=== PATIENT | female | born 1985 | race Native Hawaiian/Other Pacific Islander ===

== ENCOUNTER 2016-09-12 23:41 | Emergency (ER) | payer OTHER ==
[2016-09-12 23:50] VITALS: RESP 16; O2SAT 99
[2016-09-13] MEDS ORDERED: Sodium Chloride 0.9% 1,000 ML IV ONE (01:12)
[2016-09-13 01:14] LABS: BASO # 0.1 K/uL (0.0-0.2); BASO % 0.6 % (0.0-2.0); EOS # 0.1 K/uL (0.0-0.7); EOS % 0.5 % (0.0-4.0); HEMATOCRIT 38.4 % (34.0-47.0); LYMPH # 2.8 K/uL (1.0-4.3); LYMPH % 26.9 % (20.0-40.0); MEAN CORPUSCULAR HEMOGLOBIN 29.6 pg (27.0-31.0); MEAN CORPUSCULAR HGB CONC 33.6 g/dL (33.0-37.0); MEAN PLATELET VOLUME 8.1 fL (7.2-11.7); MONO # 0.7 K/uL (0.0-0.8); MONO % 6.6 % (0.0-10.0); RED CELL DISTRIBUTION WIDTH 12.4 % (11.5-14.5); WHITE BLOOD COUNT 10.5 K/uL (4.8-10.8)
[2016-09-13 01:37] LABS: RBC URINE 10 /hpf (0-3); URINE BACTERIA RARE (<OCC); URINE BILIRUBIN NEGATIVE (NEGATIVE); URINE BLOOD NEGATIVE (NEGATIVE); URINE COLOR Straw (YELLOW); URINE GLUCOSE (UA) NORMAL (Normal); URINE KETONE NEGATIVE (NEGATIVE); URINE LEUKOCYTE ESTERASE 3+ Leu/uL (Negative); URINE PROTEIN NEGATIVE (NEGATIVE); URINE UROBILINOGEN NORMAL mg/dL (0.2-1.0); WBC URINE 17 /hpf (0-5)
[2016-09-13 01:38] LABS: CHLORIDE 95 mmol/L (98-107)
[2016-09-13 01:39] LABS: POTASSIUM 4.2 mmol/L (3.6-5.2)
[2016-09-13 01:41] LABS: ALB/GLOB RATIO 1.2 (1.0-2.1); AST/SGOT 30 U/L (14-36); BILIRUBIN,TOTAL 0.8 mg/dL (0.2-1.3); BLOOD UREA NITROGEN 8 mg/dL (7-17); CARBON DIOXIDE 22 mmol/L (22-30); GFR AFRICAN-AMERICAN > 60; TOTAL PROTEIN 8.5 g/dL (6.3-8.3)
[2016-09-13 01:42] LABS: ALKALINE PHOSPHATASE 59 U/L (38-126); ALT/SGPT 18 U/L (9-52); CALCIUM 8.8 mg/dl (8.6-10.4); GLUCOSE,RANDOM 88 mg/dL (65-105)
[2016-09-13 01:47] LABS: SODIUM 135 mmol/L (132-148)
--- NOTE | 2016-09-13 02:32 | C.PDOC ---
History Of Present Illness 30 year old female who presents to the ER with a complaint of intermittent light headedness and dizziness for the past 4 days that worsens with standing. Patient was diagnosed with iron deficiency last year in October; at the time she had a hemoglobin level of 8.7. Patient has been taking iron supplements intermittently; she last had her blood test done in May which showed a hemoglobin of 11, patient has results with her. Patient denies Hx of vertigo, fever, nausea, vomiting, diarrhea, chest pain, SOB, abdominal pain, dark stools , urinary symptoms, URI, or sore throat. Patient is also complaining of an atraumatic neck pain that started today and worsens with movement. Time Seen by Provider: 09/13/16 00:18 Chief Complaint (Nursing): Dizziness/Lightheaded History Per: Patient History/Exam Limitations: no limitations Onset/Duration Of Symptoms: Days Current Symptoms Are (Timing): Still Present Activity At Onset Of Symptoms: Other (Not known) Associated Symptoms Preceding Syncopal Episode: Lightheadedness Seizure Or Post-ictal Symptoms: None Possible Causative Factor(s): Other (Not known) Fall Associated With With Symptoms: No Recent travel outside of the [place]: No - Symptoms Of CVA Associated Symptoms: denies: Impaired Speech, Seizure Activity, New Vision Deficit(Left), New Vision Deficit(Right), Decreased Ability To Walk, New Confusion, Other Past Medical History Reviewed: Historical Data, Nursing Documentation, Vital Signs Vital Signs: Last Vital Signs Temp 98 F 09/13/16 04:19 Pulse 80 09/13/16 04:19 Resp 16 09/13/16 04:19 BP 120/80 09/13/16 04:19 Pulse Ox 99 09/13/16 04:19 - Medical History PMH: No Chronic Diseases Surgical History: No Surg Hx Family History: States: Unknown Family Hx - Social History Hx Alcohol Use: No Hx Substance Use: No - Immunization History Hx Tetanus Toxoid Vaccination: No Hx Influenza Vaccination: No Hx Pneumococcal Vaccination: No Review Of Systems Except As Marked, All Systems Reviewed And Found Negative. Constitutional: Negative for: Fever, Chills Cardiovascular: Positive for: Light Headedness. Negative for: Chest Pain Respiratory: Negative for: Cough, Shortness of Breath, Wheezing Gastrointestinal: Negative for: Nausea, Vomiting, Diarrhea, Melena Genitourinary: Negative for: Dysuria, Incontinence, Hematuria Musculoskeletal: Positive for: Neck Pain Neurological: Positive for: Dizziness. Negative for: Headache Physical Exam - Physical Exam Appears: Well, Non-toxic, No Acute Distress, Other (Anxious) Skin: Normal Color, Warm, Dry, No Pale, No Rash Head: Atraumatic, Normacephalic Eye(s): bilateral: Normal Inspection, PERRL, EOMI Ear(s): Bilateral: Normal Nose: Normal Oral Mucosa: Moist Throat: Normal, No Erythema, No Exudate Neck: Normal, Normal ROM, No Midline Cervical Tenderness, Paracervical Tenderness, Supple Chest: Symmetrical, No Tenderness Cardiovascular: No Murmur, Other (+tachycardic) Respiratory: Normal Breath Sounds, No Rales, No Rhonchi, No Wheezing Gastrointestinal/Abdominal: Soft, No Tenderness, No Guarding, No Rebound Back: Normal Inspection, No CVA Tenderness, No Vertebral Tenderness Extremity: Normal ROM, No Tenderness, No Swelling Pulses: Left Radial: Normal, Right Radial: Normal Neurological/Psych: Oriented x3, Normal Speech, Normal Cognition, Normal Cranial Nerves, Cerebellar Signs, Normal Motor, Normal Sensation, Normal Reflexes Gait: Steady ED Course And Treatment - Laboratory Results Result Diagrams: 09/13/16 01:01 09/13/16 01:01 O2 Sat by Pulse Oximetry: 99 (Room air) Pulse Ox Interpretation: Normal Medical Decision Making Medical Decision Makin30 year old female who presents to the ER with a complaint of intermittent light headedness and dizziness for the past 4 days that worsens with standing. Plan: * EKG * IV fluids * CBC * CMP * UA * Uhcg * Urine cx EKG : Sinus tach at 115 bpm, normal axis, no acute ST changes, as read by PA Labs reviewed : Uhcg (-), UA shows 3+leuks with numerous WBC. On re-evaluation, pt reports feeling well. She denies any dizziness, headache, CP, abdominal pain, fever or chills at this time. Pt notified of diagnostic results and diagnosis of UTI. Rocephin 1 g IV ordered. On repeat exam, neck is supple with FROM, lungs CTA, cardiac RRR, abdomen is soft with no tenderness, no CVA tenderness, neuro shows no focal findings and pt is ambulatory with a normal gait. VS : P 80 BP 120/80 T 98 R 16 [id number]. Otherwise, advised to f/u with pmd in 2 days for re-evaluation, take Rx as prescribed, instructed to return to the ER at any time for any new or worsening symptoms. Pt verbalize understanding of d/c instruction and states that she will f/u as advised. Disposition Counseled Patient/Family Regarding: Studies Performed, Diagnosis, Need For Followup, Rx Given - Disposition Disposition: HOME/ ROUTINE Disposition Time: 03:30 Condition: IMPROVED Additional Instructions: Take medication as prescribed. Follow up with pmd in 2 days for re-evaluation. Return to the ER at any time for any new or worsening symptoms. Prescriptions: Nitrofurantoin Macrocrystals [Macrobid] 100 mg PO BID #20 cap Instructions: Urinary Tract Infection in Women (ED), Dizziness (ED) Forms: [employer] (Azeri) Print Language: DIVEHI - Clinical Impression Clinical Impression: Dizziness, UTI (urinary tract infection) - PA / PATIENT CARE DIRECTOR / Resident Statement MD/DO has reviewed & agrees with the documentation as recorded. - Scribe Statement The provider has reviewed the documentation as recorded by the Scribmichelle Beckett All medical record entries made by the Rubio were at my direction and personally dictated by me. I have reviewed the chart and agree that the record accurately reflects my personal performance of the history, physical exam, medical decision making, and the department course for this patient. I have also personally directed, reviewed, and agree with the discharge instructions and disposition.
[2016-09-13] MEDS ORDERED: cefTRIAXone IV 1 gm in Dextros 50 ML IVPB ONE ×2 (03:10→03:18)
[2016-09-13 04:20] VITALS: BP 120/80; PULSE 80; TEMP 98
--- NOTE | 2016-09-26 20:29 | CARD ---
APPROVED REPORT EKG Measurement Heart [id number] <Conclusion> Sinus tachycardia Nonspecific ST abnormality Abnormal ECG
--- NOTE | 2016-09-27 14:33 | CARD ---
APPROVED REPORT EKG Measurement Heart [id number] <Conclusion> Normal sinus rhythm Normal ECG
== END 2016-09-13 04:20 | disposition home or self-care (01) ==
LOC: C.ER 23:41
DX: R42 Dizziness and giddiness (principal); N39.0 Urinary tract infection, site not specified
CPT/HCPCS: 80053; 81001; 85025; 96361; 96365; 99285; J0696; J7040

== ENCOUNTER 2016-09-15 18:06 | Emergency (ER) | payer OTHER ==
[2016-09-15 18:25] VITALS: O2SAT 100
--- NOTE | 2016-09-15 19:20 | C.PDOC ---
History Of Present Illness Patient presents to the ED for evaluation of lightheadedness and dizziness which began a few days ago. Patient was evaluated in this ED around 2 days ago for similar complaints. During her stay, patient underwent workup which produced negative results. Patient also has a Urinary Tract Infection, for which she is being treated. Patient denies syncope, vision change, extremity numbness/weakness. Time Seen by Provider: 09/15/16 19:20 Chief Complaint (Nursing): Dizziness/Lightheaded History Per: Patient History/Exam Limitations: no limitations Onset/Duration Of Symptoms: Hrs Current Symptoms Are (Timing): Still Present Activity At Onset Of Symptoms: Standing Associated Symptoms Preceding Syncopal Episode: No Predromal Symptoms (Sudden Onset) Seizure Or Post-ictal Symptoms: None Fall Associated With With Symptoms: No Severity: Mild Pain Scale Rating Of: 3 Recent travel outside of the [place]: No Additional History Per: Patient - Symptoms Of CVA Associated Symptoms: denies: New Vision Deficit(Left), New Vision Deficit(Right) Past Medical History Reviewed: Historical Data, Nursing Documentation, Vital Signs Vital Signs: Last Vital Signs Temp 99 F 09/15/16 18:21 Pulse 98 H 09/15/16 18:21 Resp 18 09/15/16 18:21 BP 123/83 09/15/16 18:21 Pulse Ox 100 09/15/16 21:06 Surgical History: No Surg Hx Family History: States: No Known Family Hx - Social History Hx Alcohol Use: No Hx Substance Use: No - Immunization History Hx Tetanus Toxoid Vaccination: No Hx Influenza Vaccination: No Hx Pneumococcal Vaccination: No Review Of Systems Constitutional: Negative for: Fever, Chills Eyes: Negative for: Vision Change Cardiovascular: Negative for: Chest Pain Respiratory: Negative for: Shortness of Breath Gastrointestinal: Negative for: Nausea, Vomiting Musculoskeletal: Negative for: Neck Pain, Back Pain Skin: Negative for: Rash, Lesions, Jaundice, Bruising Neurological: Positive for: Dizziness, Other (+lightheadedness ). Negative for : Weakness, Numbness, Altered Mental Status, Headache Physical Exam - Physical Exam Appears: Non-toxic, No Acute Distress Skin: Warm, Dry Head: Normacephalic Eye(s): bilateral: Normal Inspection, PERRL, EOMI, Other (no nystagmus ) Oral Mucosa: Moist Neck: Supple Chest: Symmetrical, No Deformity, No Tenderness Cardiovascular: Rhythm Regular, No Murmur Respiratory: No Rales, No Rhonchi, No Wheezing Extremity: Normal ROM, Capillary Refill (less than 2 seconds) Neurological/Psych: Oriented x3, No Romberg Gait: Steady ED Course And Treatment ECG: Interpreted By Me, Viewed By Me ECG Rhythm: Sinus Rhythm (100), Nonspecific Changes O2 Sat by Pulse Oximetry: 100 (on RA) Pulse Ox Interpretation: Normal Progress Note: CT Head, CT Cervical Spine, Antivert PO, and Motrin PO ordered. Reevaluation Time: 22:06 Reassessment Condition: Improved Medical Decision Making Medical Decision Making: Upon provider reevaluation patient is feeling better, is medically stable, and requires no further treatment in the ED at this time. Patient will be discharged home with Rx for motrin and antivert . Counseling was provided and all questions were answered regarding diagnosis and need for follow up with the referred clinic. There is agreement to discharge plan. Return if symptoms persist or worsen. Disposition Counseled Patient/Family Regarding: Studies Performed, Diagnosis, Need For Followup, Rx Given - Disposition Referrals: [facility] [Outside] [facility] [Outside] Disposition: HOME/ ROUTINE Disposition Time: 19:20 Condition: FAIR Prescriptions: Ibuprofen [Motrin] 1 tab PO TID PRN #15 tab PRN Reason: Pain Meclizine [Antivert] 25 mg PO TID #10 tab Instructions: Dizziness (ED), Acute Headache (DC) Forms: [employer] (Bulgarian) - Clinical Impression Clinical Impression: Dizziness, Headache - Scribe Statement The provider has reviewed the documentation as recorded by the Scribe (Clari Padron) Provider Attestation: All medical record entries made by the Scribe were at my direction and personally dictated by me. I have reviewed the chart and agree that the record accurately reflects my personal performance of the history, physical exam, medical decision making, and the department course for this patient. I have also personally directed, reviewed, and agree with the discharge instructions and disposition.
--- NOTE | 2016-09-15 21:31 | CT ---
EXAM: CT Head Without Intravenous Contrast CLINICAL HISTORY: 30 years old, female; Signs and symptoms; Dizziness TECHNIQUE: Axial computed tomography images of the head/brain without intravenous contrast. All CT scans at this facility use one or more dose reduction techniques, viz.: automated exposure control; ma/kV adjustment per patient size (including targeted exams where dose is matched to indication; i.e. head); or iterative reconstruction technique. EXAM DATE/TIME: 09/15/2016 9:00 PM COMPARISON: There are no prior studies for comparison. FINDINGS: Brain: Ventricles are normal in size and configuration. There is no midline shift. There are no intra-axial or extra-axial mass lesions or areas of hemorrhage. There are no abnormal fluid collections. Alaniz-white differentiation is maintained. Ventricles: See above. Bones: Cranial vault is intact. Soft tissues: unremarkable Sinuses: There is no acute sinusitis. Ears and mastoids: Middle ears and mastoids are unremarkable Orbits: Orbital contents are unremarkable. IMPRESSION: No acute intracranial abnormality
--- NOTE | 2016-09-15 22:09 | CT ---
EXAM: CT Cervical Spine Without Intravenous Contrast CLINICAL HISTORY: 30 years old, female; Pain; Neck pain; Additional info: Dizziness, neck pain TECHNIQUE: Axial computed tomography images of the cervical spine without intravenous contrast. All CT scans at this facility use one or more dose reduction techniques, viz.: automated exposure control; ma/kV adjustment per patient size (including targeted exams where dose is matched to indication; i.e. head); or iterative reconstruction technique. Coronal and sagittal reformatted images were created and reviewed. EXAM DATE/TIME: 09/15/2016 9:00 PM COMPARISON: There are no prior studies for comparison. FINDINGS: Vertebrae: There is slight reversal of the cervical lordosis. 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 There are no fractures or alignment abnormalities.Disc spaces are maintained. Facet joints align anatomically. Spinous processes align in the expected fashion. Bony mineralization is normal. Discs/spinal canal/neural foramina: see above Soft tissues: See above. Thyroid: Thyroid is heterogeneous. 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
[2016-09-15 22:25] VITALS: BP 120/83; PULSE 78; RESP 16; TEMP 98.3
== END 2016-09-15 22:25 | disposition home or self-care (01) ==
LOC: C.ER 18:06
DX: R42 Dizziness and giddiness (principal); R51 Headache